=== PATIENT | female | born 1980 | race Two or more races ===

== ENCOUNTER 2019-10-23 11:26 | Emergency (ER) | payer BC ==
[~2019-10-23] VITALS: Ht 154.9 cm; Wt 72.7 kg
[~2019-10-23 11:26] MED LIST: ACET325T9 PO
[2019-10-23 12:21] LABS: BASO % 1 % (0-3); EOS # 0.1 x10^3/uL (0.0-0.7); EOS % 2 % (0-3); HEMATOCRIT 34.3 % (36.0-47.0); LYMPH # 1.7 x10^3/uL (1.0-4.8); LYMPH % 24 % (24-48); MEAN CORPUSCULAR HEMOGLOBIN 29 pg (25-35); MEAN CORPUSCULAR HGB CONC 35 g/dL (31-37); MEAN CORPUSCULAR VOLUME 84 fL (79-100); MONO # 0.5 x10^3/uL (0.0-1.1); MONO % 7 % (0-9); NEUT # 4.7 x10^3/uL (1.8-7.7); NEUT % 66 % (31-73); PLATELET COUNT 207 x10^3/uL (140-400); RED BLOOD COUNT 4.11 x10^6/uL (3.50-5.40); WHITE BLOOD COUNT 7.1 x10^3/uL (4.0-11.0)
[2019-10-23 12:30] LABS: CALCIUM 8.5 mg/dL (8.5-10.1); CREATININE 0.7 mg/dL (0.6-1.0); GFR 92.2; POTASSIUM 3.3 mmol/L (3.5-5.1)
[2019-10-23 12:36] LABS: ALBUMIN/GLOBULIN RATIO 0.8 (1.0-1.7); TOTAL BILIRUBIN 0.2 mg/dL (0.2-1.0); TOTAL PROTEIN 6.9 g/dL (6.4-8.2)
--- NOTE | 2019-10-23 12:41 | PHYS DOC ---
Past Medical History Past Medical History: Anxiety, Other Additional Past Medical Histor: chronic back pain Past Surgical History: No Surgical History, Cholecystectomy Smoking Status: Never Smoker Alcohol Use: None Drug Use: None General Adult EDM: Chief Complaint: VAGINAL BLEEDING HPI: HPI: Patient is a 39-year-old female who states she is about 8 weeks who a few days ago had some vaginal bleeding. She was concerned that she was having a miscarriage. 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 She denies any significant pain or discomfort. She denies any dysuria or gross hematuria. She has had no fever chills or sweats. No nausea or vomiting. [] Review of Systems: Review of Systems: Constitutional: Denies fever or chills. [] Eyes: Denies change in visual acuity. [] HENT: Denies nasal congestion or sore throat. [] Respiratory: Denies cough or shortness of breath. [] Cardiovascular: Denies chest pain or edema. [] GI: Denies abdominal pain, nausea, vomiting, bloody stools or diarrhea. [] : D Per HPI Musculoskeletal: Denies back pain or joint pain. [] Integument: Denies rash. [] Neurologic: Denies headache, focal weakness or sensory changes. [] Endocrine: Denies polyuria or polydipsia. [] Lymphatic: Denies swollen glands. [] Psychiatric: Denies depression or anxiety. [] Heart Score: Risk Factors: Risk Factors: DM, Current or recent (<one month) smoker, HTN, HLP, family history of CAD, obesity. Risk Scores: Score 0 - 3: 2.5% MACE over next 6 weeks - Discharge Home Score 4 - 6: 20.3% MACE over next 6 weeks - Admit for Clinical Observation Score 7 - 10: 72.7% MACE over next 6 weeks - Early Invasive Strategies Allergies: Allergies: Allergies Coded Allergies Type Severity Reaction Last Updated Verified No Known Drug Allergies 03/23/15 No Physical Exam: PE: Constitutional: Well developed, well nourished, no acute distress, non-toxic appearance. [] HENT: Normocephalic, atraumatic, bilateral external ears normal, oropharynx moist, no oral exudates, nose normal. [] Eyes: PERRLA, EOMI, conjunctiva normal, no discharge. [] Neck: Normal range of motion, no tenderness, supple, no stridor. [] Cardiovascular:Heart rate regular rhythm, no murmur [] Lungs & Thorax: Bilateral breath sounds clear to auscultation [] Abdomen: Bowel sounds normal, soft, no tenderness, no masses, no pulsatile masses, there was no blood on the ultrasound probe when it was removed.. [] Skin: Warm, dry, no erythema, no rash. [] Back: No tenderness, no CVA tenderness. [] Extremities: No tenderness, no cyanosis, no clubbing, ROM intact, no edema. [] Neurologic: Alert and oriented X 3, normal motor function, normal sensory function, no focal deficits noted. [] Psychologic: A very anxious [] Current Patient Data: Labs: Laboratory Tests Test 10/23/19 11:15 White Blood Count 7.1 x10^3/uL (4.0-11.0) Red Blood Count 4.11 x10^6/uL (3.50-5.40) Hemoglobin 12.0 g/dL (12.0-15.5) Hematocrit 34.3 % (36.0-47.0) L Mean Corpuscular Volume 84 fL (79-100) Mean Corpuscular Hemoglobin 29 pg (25-35) Mean Corpuscular Hemoglobin Concent 35 g/dL (31-37) Red Cell Distribution Width 14.0 % (11.5-14.5) Platelet Count 207 x10^3/uL (140-400) Neutrophils (%) (Auto) 66 % (31-73) Lymphocytes (%) (Auto) 24 % (24-48) Monocytes (%) (Auto) 7 % (0-9) Eosinophils (%) (Auto) 2 % (0-3) Basophils (%) (Auto) 1 % (0-3) Neutrophils # (Auto) 4.7 x10^3/uL (1.8-7.7) Lymphocytes # (Auto) 1.7 x10^3/uL (1.0-4.8) Monocytes # (Auto) 0.5 x10^3/uL (0.0-1.1) Eosinophils # (Auto) 0.1 x10^3/uL (0.0-0.7) Basophils # (Auto) 0.0 x10^3/uL (0.0-0.2) Laboratory Tests 10/23/19 11:15 Vital Signs: Vital Signs Date Time Temp Pulse Resp B/P (MAP) Pulse Ox O2 Delivery O2 Flow Rate FiO2 10/23/19 11:40 98.6 97 20 127/71 (89) 99 Room Air 98.6 EKG: EKG: [] Radiology/Procedures: Radiology/Procedures: [ ultrasound: 8 weeks 4 days heartbeat 168 no evidence of bleed] Course & Med Decision Making: Course & Med Decision Making Pertinent Labs and Imaging studies reviewed. (See chart for details) [ED course: Evaluation reveals a 39-year-old female with an 8-week intrauterine does not appear that there is any bleeding from her vaginal area at this time.] Dragon Disclaimer: Dragon Disclaimer: This electronic medical record was generated, in whole or in part, using a voice recognition dictation system. Departure Departure Impression: Primary Impression: Threatened in early Disposition: 01 HOME, SELF-CARE Condition: STABLE Referrals: FIONA SALGADO MD (PCP) Patient Instructions: Threatened Miscarriage Additional Instructions: Follow with your OB doctor this week for recheck. JERMAN RASHID DO October 23, 2019 12:41
[2019-10-23 12:47] VITALS: BP 120/65
--- NOTE | 2019-10-23 12:57 | RAD ---
Study: US OB TRANSVAG DATE: 10/23/2019 11:47 AM INDICATION: Vaginal bleeding in the setting of a known . COMPARISON: None TECHNIQUE: Transvaginal ultrasonography of the pelvis was performed. Color Doppler and duplex were utilized as appropriate. FINDINGS: The uterus measures 11.5 x 8.1 x 6.2 cm. No focal parenchymal abnormality. Intrauterine gestational sac containing a pole with a crown-rump length measuring between 1.8 and 1.9 cm. Crescentic configuration of the gestational sac measuring 3.3 x 3.4 x 4.2 cm. heart tones are detected with a rate of 168 bpm. The right ovary measures 3.1 x 2.5 x 2.5 cm. The left ovary was not visualized. Probable corpus luteal cyst on the right measuring 1.9 x 2.3 x 1.7 cm. No free pelvic fluid. IMPRESSION: 1. Single live intrauterine with an estimated gestational age by ultrasound of 8 weeks 3 days +/- 5 days. No complicating features seen at this time. 2. Unremarkable right ovary containing a probable corpus luteal cyst. The left ovary was not visualized. Electronically signed by: KAREN CASTANEDA MD (10/23/2019 12:54 PM) [id number]
== END 2019-10-23 12:50 | disposition home or self-care (01) ==
LOC: ER 11:26
DX: O03.9 Complete or unspecified spontaneous abortion without complication (principal); F41.9 Anxiety disorder, unspecified; G89.29 Other chronic pain; Z90.49 Acquired absence of other specified parts of digestive tract; Z3A.08 8 weeks gestation of pregnancy
CPT/HCPCS: 36415; 76817; 80053; 84702; 85025; 86900; 86901; 99284

== ENCOUNTER 2019-12-15 17:16 | Emergency (ER) | payer BC ==
[~2019-12-15] VITALS: Ht 154.9 cm; Wt 84.4 kg
[2019-12-15 18:51] LABS: BILIRUBIN,URINE NEGATIVE (NEG); CLARITY,URINE CLEAR; COLOR,URINE YELLOW; NITRITE,URINE NEGATIVE (NEG); PH,URINE 7.5 (<5.0-8.0); PROTEIN,URINE NEGATIVE (NEG-TRACE); UROBILINOGEN,URINE 0.2 mg/dL (0.2 mg/dL)
--- NOTE | 2019-12-15 18:57 | PHYS DOC ---
Past Medical History Past Medical History: Anxiety, Other Additional Past Medical Histor: chronic back pain Past Surgical History: Cholecystectomy Smoking Status: Never Smoker Alcohol Use: None Drug Use: None General Adult EDM: Chief Complaint: ANXIETY/PANIC ATTACK HPI: HPI: Patient is a 39 year old female, accompanied by her daughter who presents to the emergency department with complaints of having a sudden onset of intermittent episodes of shortness of breath that is only relieved by going outside for the last week. At times she awakes in the middle of the night feeling short of breath. Patient states that she has had problems like this with previous pregnancies. She is currently 16 weeks , she is 9, para 5 with 3 previous miscarriages. She denies any irregular vaginal discharge, vaginal bleeding, vaginal odor, hematuria, dysuria, increased urinary frequency, or low back pain. She states she has noticed some discomfort in her lower abdomen. She denies any fever, sore throat, nausea, vomiting, diarrhea, rash, swelling, or cough. The patient denies any known exposure to anyone who has COVID-19. She currently denies any pain or complaints. Review of Systems: Review of Systems: Complete ROS is negative unless otherwise stated in the HPI. Heart Score: Risk Factors: Risk Factors: DM, Current or recent (<one month) smoker, HTN, HLP, family history of CAD, obesity. Risk Scores: Score 0 - 3: 2.5% MACE over next 6 weeks - Discharge Home Score 4 - 6: 20.3% MACE over next 6 weeks - Admit for Clinical Observation Score 7 - 10: 72.7% MACE over next 6 weeks - Early Invasive Strategies Allergies: Allergies: Allergies Coded Allergies Type Severity Reaction Last Updated Verified No Known Drug Allergies 03/23/15 No Physical Exam: PE: Constitutional: Well developed, well nourished, no acute distress, non-toxic appearance, appears anxious. [] HENT: Normocephalic, atraumatic, bilateral external ears normal, nose normal. [] Eyes: PERRLA, EOMI, conjunctiva normal, no discharge. [] Neck: Normal range of motion, no stridor. [] Cardiovascular:Heart rate regular rhythm Lungs & Thorax: Respirations even and unlabored, no retractions, no respiratory distress, no wheezing, lungs CTA Abdomen: soft, suprapubic tenderness to palpation, no rebound tenderness, no guarding, palpable fundus retirement between the pubis and the umbilicus Back: No CVA tenderness Skin: Warm, dry, no erythema, no rash. [] Extremities: No cyanosis, ROM intact, no edema. [] Neurologic: Alert and oriented X 3, no focal deficits noted. [] Psychologic: Affect normal, judgement normal, mood anxious Current Patient Data: Labs: Laboratory Tests Test 12/15/19 17:27 POC Urine HCG, Qualitative Hcg positive (Negative) Vital Signs: Vital Signs Date Time Temp Pulse Resp B/P (MAP) Pulse Ox O2 Delivery O2 Flow Rate FiO2 12/15/19 17:30 98.0 104 26 134/78 (96) 100 Room Air 98.0 EKG: EKG: [] Radiology/Procedures: Radiology/Procedures: [] Course & Med Decision Making: Course & Med Decision Making Pertinent Labs and Imaging studies reviewed. (See chart for details) CBC is unremarkable; UA is unremarkable, urine drug screen is negative No acute findings on chest x-ray read by Dr. Martniez. Patient's vital signs are stable throughout her emergency room visit. 8- Spoke with Dr. Triana to discuss pt and POC. Dr. Triana would not recommend prescribing patient medication for anxiety sx. Pt should be advised to follow up with her OBGyn for management of anxiety sx. [] Rolly Disclaimer: Rolly Disclaimer: This electronic medical record was generated, in whole or in part, using a voice recognition dictation system. Departure Departure Impression: Primary Impression: Anxiety Disposition: 01 HOME, SELF-CARE Condition: STABLE Referrals: NO PCP (PCP) Patient Instructions: Anxiety and Panic Attacks, [id number] Additional Instructions: Your chest x-ray and ultrasound were normal today. Follow up with your OBGyn for further evaluation and treatment of your symptoms. Return to the ER if symptoms worsen. Justicifation of Admission Dx: Justifications for Admission: Justification of Admission Dx: N/A TRISTA HAYES [employer] Dec 15, 2019 18:57
[2019-12-15 19:05] LABS: BACTERIA,URINE MANY /HPF (0-FEW); RBC,URINE 0 /HPF (0-2); SQUAMOUS EPITHELIAL CELL,UR MOD /LPF
[2019-12-15 19:06] LABS: WBC,URINE OCC /HPF (0-4)
[2019-12-15 19:08] LABS: AMPHETAMINE/METHAMPHETAMINE NEG (NEG); BARBITURATES NEG (NEG); BENZODIAZEPINES NEG (NEG); CANNABINOIDS NEG (NEG); COCAINE NEG (NEG); METHADONE NEG (NEG); OPIATES NEG (NEG); PHENCYCLIDINE NEG (NEG)
[2019-12-15 19:23] LABS: BASO % 0 % (0-3); EOS % 0 % (0-3); HEMATOCRIT 35.1 % (36.0-47.0); HEMOGLOBIN 12.2 g/dL (12.0-15.5); LYMPH % 24 % (24-48); MEAN CORPUSCULAR HEMOGLOBIN 29 pg (25-35); MEAN CORPUSCULAR HGB CONC 35 g/dL (31-37); MEAN CORPUSCULAR VOLUME 84 fL (79-100); MONO # 0.5 x10^3/uL (0.0-1.1); MONO % 6 % (0-9); NEUT # 5.6 x10^3/uL (1.8-7.7); NEUT % 69 % (31-73); PLATELET COUNT 183 x10^3/uL (140-400); RED BLOOD COUNT 4.16 x10^6/uL (3.50-5.40); RED CELL DISTRIBUTION WIDTH 13.5 % (11.5-14.5); WHITE BLOOD COUNT 8.1 x10^3/uL (4.0-11.0)
--- NOTE | 2019-12-15 19:42 | RAD ---
INDICATION: Reason: suprapubic pain in / Spl. Instructions: / History: COMPARISON: October 23, 2019 TECHNIQUE: Grayscale and color ultrasound images uterus and adnexa. FINDINGS: The cervix is closed. Bowel gas is seen within the bilateral adnexa. Placenta is posterior. heart beat is 165. Gestational sac is unremarkable. Estimated gestational age is 16 weeks and 6 days with estimated due date of 05/25/2020. Estimated weight is 169 g. Variable presentation. IMPRESSION: * Intrauterine is identified with a pole with a positive heartbeat and estimated gestational age of 16 weeks and 6 days. Recommend routine anomaly screen at 18-22 weeks. Electronically signed by: Kam Kearney MD (12/15/2019 7:39 PM) [id number]
[2019-12-15 20:30] VITALS: BP 119/74
--- NOTE | 2019-12-15 20:56 | RAD ---
Exam: Chest one view INDICATION: Shortness of air TECHNIQUE: Frontal view of the chest Comparisons: None FINDINGS: The cardiomediastinal silhouette and pulmonary vessels are within normal limits. The lung and pleural spaces are clear. IMPRESSION: No acute cardiopulmonary process. Electronically signed by: Raj Cartagena MD (12/15/2019 8:53 PM) [id number]
== END 2019-12-15 20:43 | disposition home or self-care (01) ==
LOC: ER 17:16
DX: O99.342 Other mental disorders complicating pregnancy, second trimester (principal); F41.9 Anxiety disorder, unspecified; O99.512 Diseases of the respiratory system complicating pregnancy, second trimester; R06.02 Shortness of breath; G89.29 Other chronic pain; Z90.49 Acquired absence of other specified parts of digestive tract; Z3A.16 16 weeks gestation of pregnancy
CPT/HCPCS: 36415; 71045; 76815; 80307; 81001; 81025; 84702; 85025; 87086; 99285-25